=== PATIENT | female | born 1995 | race Caucasian/White ===

== ENCOUNTER 2017-01-01 18:44 | Emergency (ER) | payer SELFPAY ==
[~2017-01-01] VITALS: Ht 154.9 cm; Wt 58.2 kg
[2017-01-01 21:30] VITALS: BP 119/69
[2017-01-01] MEDS ORDERED: METHOCARBAMOL 500 MG TABLET PO ONE (21:30)
[2017-01-01] MEDS ORDERED: TraMADol HCL 50 MG TABLET PO ONE (21:30)
[2017-01-01] MEDS: KETOROLAC TROMETHAMINE 60 MG/2 ML VIAL IM ONE ×2 (21:32→21:36)
[2017-01-01] MEDS ORDERED: IBUPROFEN 800 MG TABLET PO ONE (21:45)
== END 2017-01-01 22:22 | disposition home or self-care (01) ==
LOC: EMS 18:45
DX: S16.1XXA Strain of muscle, fascia and tendon at neck level, initial encounter (principal); S39.012A Strain of muscle, fascia and tendon of lower back, initial encounter; R42 Dizziness and giddiness; R50.9 Fever, unspecified; R11.2 Nausea with vomiting, unspecified; R06.02 Shortness of breath; R51 Headache; R10.9 Unspecified abdominal pain; V49.9XXA Car occupant (driver) (passenger) injured in unspecified traffic accident, initial encounter; Y93.89 Activity, other specified; Y92.488 Other paved roadways as the place of occurrence of the external cause; Y99.8 Other external cause status
CPT/HCPCS: 99284; J1885